=== PATIENT | female | born 1985 | race Caucasian/White ===

== ENCOUNTER 2023-09-17 15:15 | Emergency (ER) | payer BC, SELFPAY ==
[2023-09-17 15:24] VITALS: BP 120/89
[2023-09-17 15:39] LABS: % Basophils 0.3 % (0-2); % Eosinophils 0.5 % (0-6); % Immature Granulocytes 0.2 % (0-0.5); % Lymphocytes 27.4 % (20.5-51.1); % Monocytes 6.9 % (1.7-9.3); % Neutrophils 64.7 % (42.2-75.2); Absolute Lymphocytes 1.7 10^3/uL (1.2-3.4); Absolute Monocytes 0.4 10^3/uL (0.1-0.6); Absolute Neutrophils 4.1 10^3/uL (1.4-6.5); Hematocrit 35.6 % (37.0-47.0); Hemoglobin 12.7 g/dL (12.0-16.0); Mean Corp Hgb Conc. 35.7 g/dL (33.0-37.0); Mean Corpuscular Hgb 27.7 pg (27.0-31.0); Mean Corpuscular Volume 77.6 fL (81.0-99.0); Mean Platelet Volume 9.4 fL (7.4-10.4); Nucleated Red Blood Cells % 0 %; Platelet Count 347 10^3/uL (130-400); Red Blood Cell Count 4.59 10^6/uL (4.20-5.40); White Blood Cell Count 6.3 10^3/uL (4.8-10.8)
[2023-09-17 16:04] LABS: Troponin I < 0.012 ng/ml
[2023-09-17 16:10] LABS: ALT (SGPT) 23 U/L (0-35); AST (SGOT) 26 U/L (14-36); Albumin 4.7 g/dl (3.5-5.0); Alkaline Phosphatase 63 U/L (38-126); Blood Urea Nitrogen 19 mg/dl (7-17); Carbon Dioxide 20 mmol/L (22-30); Chloride 106 mmol/L (98-107); Glucose 106 mg/dl (70-99); Potassium 3.2 mmol/L (3.5-5.1); Sodium 136 mmol/L (135-145); Total Bilirubin 0.6 mg/dl (0.2-1.3); Total Protein 7.4 g/dl (6.3-8.2); eGFR > 60.00
[2023-09-17 18:20] VITALS: BP 99/70
--- NOTE | 2023-09-17 19:11 | ED.GENMED ---
History of Present Illness
General
Chief Complaint: Chest Pain
Source: patient
Exam Limitations: none
Time Seen by Provider: 09/17/23 18:53
Nursing documentation reviewed up to this point in time: agreed with
Travel History
Have you had any contact with someone who has COVID-19?: No
Do you have any symptoms of coronavirus? Fever > 100 degrees, chills, cough, shortness of breath, sore throat, loss of taste or smell, muscle aches, or headache?: No
History of Present Illness
History of Present Illness:
Patient is a 37-year-old female who presents to the ER for evaluation of intermittent chest pain for the past couple days. She does report she has felt short of breath with it. Will resolve on its own. Today however she developed chest pain while
sitting at her desk and then suddenly started to feel numbness and tingling to the left side of her body including her face jaw arm and then progressed to numbness throughout her entire right side of the body. She felt numbness in her legs as well.
She denied any associated headache or speech difficulty. Denies any vision changes .
she currently is asymptomatic. She does not feel that this was a panic attack though she did have a panic attack years ago as a child with 'numbness.'
She is not on control she does not smoke. No recent travel no PE DVT risk factors. No family history cardiac disease.
Review of Systems
Review of Systems
Allergies reviewed?: Yes
All Other Systems: ROS reviewed and negative except as documented in HPI and ROS
Constitutional: Reports no symptoms; Denies fever, fatigue or chills
Respiratory: Reports trouble breathing
Cardiac: Reports chest pain; Denies diaphoresis, palpitations or syncope
ABD/GI: Reports no symptoms; Denies abdominal pain, nausea or vomiting
Musculoskeletal: Reports no symptoms
Skin: Reports no symptoms
Neurological: Reports numbness (Numbness tingling to bilateral extremities prior to arrival)
Psychiatric: Reports no symptoms
Phy Exam
General Physical Exam
General Presentation: no apparent distress
General age: appears stated age
General Skin: warm and dry
General Habitus: normal
General Mental: alert
General Hydration: appears well hydrated
Cardiovascular Exam
Cardiovascular Exam: regular rate/rhythm, no murmur and normal peripheral pulses
Pulmonary Exam
Pulmonary Exam: lungs clear and no respiratory distress
Neurological Exam
Neurological Exam: alert, oriented x3, no motor deficits, no sensory deficits and speech normal
NIH Stroke Score
Level of Consciousness: 0 - Alert
LOC questions: 0-Answers both correctly
LOC Commands: 0-Performs both correctly
Best Gaze: 0-Normal
Visual Schafer: 0=Normal, no visual loss
Facial palsy: 0=Normal, symmetrical
Motor - Right Arm: 0=No drift 10 seconds
Motor - Left Arm: 0=No drift 10 seconds
Motor - Right Le-No drift 5 seconds
Motor - Left Le-No drift 5 seconds
Limb Ataxia: 0-Absent
Sensation: 0-Normal
Best Language: 0-No aphasia
Dysarthria: 0-Normal
Extinction and Inattention: 0-No abnormality
Total Score:: 0
Randy Coma Scale
Eye Opening: Spontaneous
Verbal Response: Oriented
Motor Response: Obeys Commands
GCS Total Score: 15
Musculoskeletal Exam
Musculoskeletal Exam: full ROM
Skin Exam
Skin Exam: normal color and warm/dry
Psychiatric Exam
Psychiatric Exam: normal mood/affect
Scores
Heart Score for Chest Pain Patients
STEMI patient?: Not applicable
Course
Orders/Labs/Results
Orders:
Orders
09/17/23 15:18
Electrocardiogram (*1) Urgent
Reason for Study: Chest Pain
EKG- Treatment ONCE
09/17/23 15:31
Complete Blood Count/With Diff Urgent
Comprehensive Metabolic Panel Urgent
TSH Reflex To Free T4 Urgent
Comment: ADD ON
Troponin I Urgent
09/17/23 19:27
CT Head W/o Iv Contrast Urgent
Comment:
Reason For Exam: numbness to extremity
09/17/23 19:28
Add On- LAB Urgent
Tests Added?: tsh with reflexive t4
Chest [CR Chest - 2 Views ] Urgent
Comment:
Reason For Exam: cp
09/17/23 19:53
DDimer [D-Dimer] Urgent
Abnormal Lab Results
09/17/23
15:31
Hct 35.6 L %
(37.0-47.0)
MCV 77.6 L fL
(81.0-99.0)
Potassium 3.2 L mmol/L
(3.5-5.1)
Carbon Dioxide 20 L mmol/L
(22-30)
BUN 19 H mg/dl
(7-17)
Creatinine 0.5 L mg/dL
(0.6-1.0)
Glucose 106 H mg/dl
(70-99)
09/17/23 15:31
09/17/23 15:31
Vital Signs
Initial and Last Documented VS:
Initial Vital Signs
Temp Pulse Resp BP Pulse Ox
98.1 F 70 19 120/89 98
09/17/23 15:24 09/17/23 15:24 09/17/23 15:24 09/17/23 15:24 09/17/23 15:24
Last Documented Vital Signs
Temp Pulse Resp BP Pulse Ox
98.1 F 71 20 102/57 98
09/17/23 15:24 09/17/23 21:36 09/17/23 21:36 09/17/23 21:36 09/17/23 21:36
Heel Seat Fitter Machine consulted with Physician
Heel Seat Fitter Machine consulted with physician?: Yes
Name of Physician Consulted: Vijaya
MDM/Problems Addressed
MDM/Problems Addressed:
Patient is a healthy 37 yr old female who present to the ER for evaluation. Patient has intermittent chest pain for the past several days but today while sitting developed initially left-sided numbness to her body and then right-sided numbness and
felt numb all over and tingly. She had no associated weakness no speech issues no headache. Patient presented asymptomatic for my exam and has been asymptomatic here no acute distress with a normal neurologic Naseem. Patient had a normal cardiac
troponin, normal D-dimer normal EKG CT head negative. Chest x-ray unremarkable
Patient is well-appearing and has remained asymptomatic during the ER stay. Case reviewed with ED physician no acute concerning causes of patient's symptoms will DC patient home with outpatient follow
*Radiology
Radiology exam reviewed: radiology read reviewed
*Pulse Oximetry
Patient hypoxic: no
*EKG
Interpreted by ED Provider?: Yes
Interpretation: normal
Heart Rate: 71
Rhythm: sinus
Ischemia: no ischemia
*Critical Care Note
Total Time (30-74mins, 75-104mins- exclusive of procedures): Not Applicable
ED Attending Note
-
Portions of this chart may have been created with voice recognition software.� Occasional wrong word or��sound alike� substitutions may have occurred due to the inherent limitations of voice recognition software.
Discharge Plan
Departure
Referrals:
Ana Davis NP [Family Provider] -
Interventions
Interventions:
*Risk Screen - Suicide Last Done: 09/17/23 15:24
*General Assessment Last Done: 09/17/23 15:24
*Neglect/Abuse Screening Last Done: 09/17/23 15:24
*ED COVID-19 Vaccine History Last Done: 09/17/23 18:20
ED- Cardiac Assessment Last Done: 09/17/23 18:20
Discharge Date and Time
Print Language: CHINESE
[2023-09-17 20:10] LABS: D-Dimer 0.32 ug/mlFEU (0.00-0.50)
[2023-09-17 21:36] VITALS: BP 102/57
== END 2023-09-17 22:20 | disposition home or self-care (01) ==
LOC: EMR 15:15
PROVIDERS: Nurse Practitioner; Student in an Organized Health Care Education/Training Program; EMERGENCY PHYSICIAN Emergency Medicine; FAMILY PHYSICIAN Nurse Practitioner Adult Health
DX: R07.89 Other chest pain (principal); R06.02 Shortness of breath; R20.2 Paresthesia of skin; R20.0 Anesthesia of skin
CPT/HCPCS: 99285; 70450; 71046; 80053; 84443; 84484; 85025; 85379; 93005